=== PATIENT | male | born 1960 ===

== ENCOUNTER 2016-12-30 12:36 | Day surgery (SDC) | payer BC ==
[2016-12-25 11:08] VITALS: BMI 21.2
[2016-12-30 13:26] LABS: BASO # 0.02 K/mm3 (0.0-2.0); BASO % 0.2 % (0.0-3.0); EOS # 0.2 (0.0-0.7); EOS % 2.5 % (1.5-5.0); GRAN # 5.51 (1.4-6.5); GRAN % 59.3 % (50.0-68.0); HEMOGLOBIN 9.9 gm/dL (14.0-18.0); MEAN CELL VOLUME 83.2 fL (80.0-105.0); MEAN CORPUSCULAR HEMOGLOBIN 26.8 pg (25.0-35.0); MEAN CORPUSCULAR HGB CONC 32.2 g/dl (31.0-37.0); MEAN PLATELET VOLUME 8.6 fl (7.0-11.0); MONO # 0.6 (0.1-0.6); PLATELET COUNT 330 10^3/uL (120.0-450.0); RBC 3.69 10^6/uL (3.5-6.1); RED CELL DISTRIBUTION WIDTH 17.5 % (11.5-14.5); WHITE BLOOD COUNT 9.3 10^3/ul (4.5-11.0)
[2016-12-30 13:34] LABS: BLOOD UREA NITROGEN 11 mg/dL (7-21); CALCIUM 9.1 mg/dL (8.4-10.5); GFR AFRICAN-AMERICAN > 60; GFR NON-AFRICAN AMERICAN > 60
[2016-12-30 13:35] LABS: INR 1.02 (0.93-1.08); PARTIAL THROMBOPLASTIN TIME 28.9 Seconds (23.7-30.8)
--- NOTE | 2016-12-30 13:58 | CP.SDSHP ---
Same Day Surgery H & P - History Proposed Procedure: bone marrow Bx. Pre-Op Diagnosis: leukocytosis,thrombocytosis. - Previous Medical/Surgical History Cardiac: Arrhythmia Pulmonary: Asthma, Bronchitis, Smoking Neuro: Backaches Pain: 0. No Pain - Allergies Allergies: Allergies No Known Allergies Allergy (Verified 05/18/14 10:55) - Physical Exam General Appearance: WNL. Mental Status: Alert & Oriented x3 Neuro: WNL Heart: WNL Lungs: WNL GI: WNL - Impression Impression: LEUKOCYTOSIS/THROMBOCYTOSIS. - Date & Time Date: 12/30/16 Time: 13:58 Short Stay Discharge - Short Stay Discharge Admitting Diagnosis/Reason for Visit: LEUKEMIA C95.90 Disposition: HOME/ ROUTINE Referrals: Lucy Sanchez DO [Primary Care Provider] -
[2016-12-30] MEDS ORDERED: Midazolam 2 MG/2 ML VIAL ONE (14:21)
[2016-12-30] MEDS ORDERED: Oxycodone/Acetaminophen 5/325 mg Tab PO PRN (15:21)
[2016-12-30] MEDS ORDERED: Sodium Chloride 0.45% 1,000 ML IV SCH (15:30)
[2016-12-30 16:32] VITALS: RESP 20; TEMP 98.1
[2016-12-30 17:00] VITALS: BP 109/74; PULSE 82; O2SAT 99
--- NOTE | 2016-12-30 17:36 | CT ---
PROCEDURE: CT guided bone marrow aspiration and biopsy HISTORY: Leukocytosis. Possible leukemia. Needs bone marrow sampling PHYSICIAN(S): Stevo Flores MD. TECHNIQUE: The relative risks and indications of the procedure were explained to the patient and consent obtained. The patient was placed prone on the CT scanner and preliminary images through the pelvis obtained. Conscious sedation and monitoring were provided throughout the procedure by a nurse. The left posterior superior iliac spine was localized with CT.. A posterior approach was selected and the area prepped and draped in the usual sterile fashion. 1% Xylocaine was used to anesthetize the skin and soft tissues. On control bone marrow biopsy needle was advanced to the cortex. The mechanical drill was used to cross the cortex. A bone marrow aspiration was performed. Next a long core biopsy was obtained. The slides were prepared by Dr. Reis. IMPRESSION: 1. CT-guided bone marrow aspiration and biopsy as described above.
== END 2016-12-30 16:45 | disposition home or self-care (01) ==
LOC: SDS 12:36
PROVIDERS: ATTEND Radiology Vascular & Interventional Radiology
DX: D72.829 Elevated white blood cell count, unspecified (principal); D75.89 Other specified diseases of blood and blood-forming organs
CPT/HCPCS: 36415; 38221; 80048; 85025; 85610; 85730; J1642; J2250; J2405; J3010; J7030

== ENCOUNTER 2018-10-14 02:32 | Emergency (ER) | payer BC, OTHER ==
[2018-10-14 02:33] VITALS: BMI 21.2
[2018-10-14 02:42] VITALS: RESP 18; TEMP 98.1
--- NOTE | 2018-10-14 04:32 | ED PDOC ---
Arrival/HPI - General Chief Complaint: Alcohol Ingestion Time Seen by Provider: 10/14/18 02:42 Historian: Patient EM Caveat: Intoxicated - History of Present Illness Narrative History of Present Illness (Text): 10/14/18 03:09 58 year old male, with no significant past medical history, presents to the emergency department by EMS for alcohol intoxication. Patient admits to drinking tonight. No visible trauma. HPI and ROS limited due to patient's state of intoxication. Past Medical History - Provider Review Nursing Documentation Reviewed: Yes - Infectious Disease Hx of Infectious Diseases: None - Tetanus Immunization Tetanus Immunization: Unknown - Cardiac Hx Pacemaker: No - Pulmonary Hx Respiratory Disorders: No Hx Asthma: No Hx Bronchitis: No Hx Chronic Obstructive Pulmonary Disease (COPD): No - Neurological Hx Paralysis: No - Hematological/Oncological Hx Blood Disorders: Yes Hx Blood Transfusions: No Hx Leukemia: Yes Other/Comment: Leuokocytosis - Musculoskeletal/Rheumatological Hx Musculoskeletal Disorders: Yes - Psychiatric Hx Emotional Abuse: No Hx Physical Abuse: No Hx Substance Use: No - Surgical History Other/Comment: Circumcision 12yrs old - Anesthesia Hx Anesthesia Reactions: No Hx Malignant Hyperthermia: No - Suicidal Assessment Feels Threatened In Home Enviroment: No Family/Social History - Physician Review Nursing Documentation Reviewed: Yes Family/Social History: No Known Family HX Smoking Status: Heavy Smoker > 10 Cigarettes Daily Hx Alcohol Use: Yes (ON OCCASION) Hx Substance Use: No Hx Substance Use Treatment: No Allergies/Home Meds Allergies/Adverse Reactions: Allergies No Known Allergies Allergy (Verified 05/18/14 10:55) Home Medications: Home Meds Medication Instructions Recorded Confirmed Topiramate [Topamax] 50 mg PO BID 05/18/14 12/30/16 Acetaminophen/Butalbital/Caf 1 tab PO QID 12/25/16 12/30/16 [Fioricet] Carisoprodol [Soma] 350 mg PO TID 12/25/16 12/30/16 Hydromorphone HCl 8 mg PO TID 12/25/16 12/30/16 Sulfamethoxazole/Trimethoprim 1 tab PO BID 12/25/16 12/30/16 [Bactrim DS 800 mg-160 mg] diaZEpam [Valium] 5 mg PO BID 12/25/16 12/30/16 Review of Systems - Physician Review All systems were reviewed & negative as marked: Yes - Review of Systems Systems not reviewed;Unavailable: Intoxicated Physical Exam Vital Signs Reviewed: Yes Vital Signs Temp Pulse Resp BP Pulse Ox 10/14/18 02:39 98.1 F 99 H 18 139/76 97 Temperature: Afebrile Blood Pressure: Normal Pulse: Regular Respiratory Rate: Normal Appearance: Positive for: Well-Appearing, Non-Toxic, Comfortable Pain Distress: None Mental Status: Positive for: other (Alert and intoxicated) Finger Stick Blood Glucose: 105 - Systems Exam Head: Present: Atraumatic, Normocephalic Pupils: Present: PERRL Extroacular Muscles: Present: EOMI Conjunctiva: Present: Normal Mouth: Present: Moist Mucous Membranes, Other (AOB) Neck: Present: Normal Range of Motion Respiratory/Chest: Present: Clear to Auscultation, Good Air Exchange. No: Respiratory Distress, Accessory Muscle Use Cardiovascular: Present: Regular Rate and Rhythm, Normal S1, S2. No: Murmurs Abdomen: No: Tenderness, Distention, Peritoneal Signs Back: Present: Normal Inspection Upper Extremity: Present: Normal Inspection. No: Cyanosis, Edema Lower Extremity: Present: Normal Inspection. No: Edema Skin: Present: Warm, Dry, Normal Color. No: Rashes Psychiatric: Present: Alert, Intoxicated Medical Decision Making ED Course and Treatment: 10/14/18 03:02 Impression: 58 year old male presents for alcohol intoxication tonight. Plan: -- Sobriety -- Reassess and disposition Prior Visits: Notes and results from previous visits were reviewed. Progress Notes: 10/14/18 06:00 Patient is awake and alert. Patient is ambulating with a steady gait. Patient is stable for discharge. He denies any current complaints at present time. - Scribe Statement The provider has reviewed the documentation as recorded by the Adolfo Benitez Provider Scribe Attestation: All medical record entries made by the Adolfo were at my direction and personally dictated by me. I have reviewed the chart and agree that the record accurately reflects my personal performance of the history, physical exam, medical decision making, and the department course for this patient. I have also personally directed, reviewed, and agree with the discharge instructions and disposition. Disposition/Present on Arrival - Present on Arrival Any Indicators Present on Arrival: No History of DVT/PE: No History of Uncontrolled Diabetes: No Urinary Catheter: No History of Decub. Ulcer: No History Surgical Site Infection Following: None - Disposition Have Diagnosis and Disposition been Completed?: Yes Diagnosis: Alcohol intoxication Disposition: HOME/ ROUTINE Disposition Time: 06:06 Patient Plan: Discharge Condition: IMPROVED Discharge Instructions (ExitCare): Alcohol Abuse and Alcoholism (DC) Additional Instructions: LILIA ROSA, thank you for letting us take care of you today. Your provider was Alice Jacobson MD and you were treated for ETOH. The emergency medical care you received today was directed at your acute symptoms. If you were prescribed any medication, please fill it and take as directed. It may take several days for your symptoms to resolve. Return to the Emergency Department if your symptoms worsen, do not improve, or if you have any other problems. Please contact your doctor . Bring any paperwork you were given at discharge with you along with any medications you are taking to your follow up visit. Our treatment cannot replace ongoing medical care by a primary care provider outside of the emergency department. Thank you for allowing the [facility] team to be part of your care today. Referrals: Lucy Sanchez DO [Staff Provider] - Follow up with primary Forms: [employer] (Hebrew)
[2018-10-14 06:25] VITALS: BP 122/76; PULSE 98; O2SAT 98
== END 2018-10-14 06:11 | disposition home or self-care (01) ==
LOC: ED 02:32
DX: F10.129 Alcohol abuse with intoxication, unspecified (principal)